=== PATIENT | male | born 1965 | race Caucasian/White ===

== ENCOUNTER 2020-07-19 09:00 | Outpatient (CLI) | payer BC, SELFPAY ==
[2020-07-19 09:21] LABS: Basophils Percent Auto 0.2 % (0.2-1.2); Eosinophils Absolute Auto 0.1 K/mm3 (0-0.3); Eosinophils Percent Auto 1.1 % (0-4.4); Hematocrit 41.7 % (42.0-52.0); Hemoglobin 14.2 g/dL (14.0-18.0); Immature Granulocyte Absolute 0.01 K/mm3 (0.00-0.031); Immature Granulocyte Percent A 0.2 % (0-0.5); Lymphocytes Absolute Auto 1.06 K/mm3 (0.9-3.2); Lymphocytes Percent Auto 19.2 % (18.3-44.2); Mean Corpuscular HGB Conc 34.1 g/dl (32-36); Mean Corpuscular Hemoglobin 30.9 pg (26-34); Mean Corpuscular Volume 90.8 fl (80-100); Mean Platelet Volume 10.7 fl (7.4-10.4); Monocytes Absolute Auto 0.5 K/mm3 (0.1-0.6); Monocytes Percent Auto 9.4 % (2.6-8.5); Neutrophils Absolute Auto 3.9 K/mm3 (1.3-6.7); Neutrophils Percent Auto 69.9 % (45.5-73.1); Platelet Count Result 176 k/mm3 (150-375); Red Blood Count 4.59 M/mm3 (4.6-6.20); Red Cell Distribution Width 13.2 % (11.5-14.5); White Blood Count 5.5 K/mm3 (4.5-10.0)
[2020-07-19 09:28] LABS: Alanine Aminotransferase 32 U/L (4-50); Albumin Level 4.5 g/dL (3.5-5.1); Alkaline Phosphatase 45 U/L (38-126); Anion Gap 7 mmol/L (8-16); Aspartate Amino Transferase 30 U/L (17-59); Bilirubin,Total 1.1 mg/dL (0.2-1.3); Blood Urea Nitrogen 19 mg/dL (9-20); Calcium 9.4 mg/dL (8.4-10.2); Carbon Dioxide 29 mmol/L (22-30); Chloride 102 mmol/L (98-107); Cholesterol 304 mg/dL (0-200); Estimated Glomerular Filt Rate > 60; Glucose 103 mg/dL (75-110); HDL Direct 60 mg/dL; Potassium 4.3 mmol/L (3.4-5.0); Sodium 138 mmol/L (137-145); Triglycerides 221 mg/dL (<150)
[2020-07-19 09:39] LABS: LDL Cholesterol Direct 185 mg/dL
[2020-07-19 09:59] LABS: Prostate Specific Antigen 0.4 ng/mL (< OR = 4.0)
[2020-07-19 10:10] LABS: Vitamin D 25 Hydroxy 40.5 ng/mL
[2020-07-24 14:30] LABS: Testosterone Total 236 ng/dL (250-1100)
== END 2020-07-19 09:01 | disposition home or self-care (01) ==
PROVIDERS: PCP Family Medicine; Visit Provider Nurse Practitioner Family
DX: E78.5 Hyperlipidemia, unspecified (principal); R53.83 Other fatigue; Z12.5 Encounter for screening for malignant neoplasm of prostate; Z13.29 Encounter for screening for other suspected endocrine disorder
CPT/HCPCS: 36415; 80053; 80061; 82306; 82607; 84153; 84403; 84443; 85025; G0103

== ENCOUNTER 2023-01-27 01:32 | Day surgery (SDC) | payer BC, SELFPAY ==
[2023-01-14 11:01] VITALS: BMI 25.4
--- NOTE | 2023-01-26 13:46 | P.PNAN_ITS ---
Anes - Initial Pre Proc Eval Procedure: Operation Date: 01/27/23 13:45 Proposed Procedures p Colonoscopy - Sg Manzo MD Date/Time: 01/26/23 13:46 Surgeon: Sg Manzo MD Pre Op Diagnosis: melena Patient Data Age: 57 Gender: M Height: 1.8 m Weight: 82.7 kg Allergies Allergy/AdvReac Type Severity Reaction Status Date / Time No Known Allergies Allergy Verified 01/27/23 11:51 Home Medications Medication Instructions Recorded Confirmed Type rosuvastatin 20 mg tablet 20 mg PO DAILY #90 tabs 12/24/22 01/27/23 Rx dorzolamide 2 % eye drops 1 drp RIGHT EYE BID 01/14/23 01/14/23 History latanoprost 0.005 % eye drops 1 drp EACH EYE HS 01/14/23 01/27/23 History Patient hx anesthesia problems: none Family hx anesthesia problems: none Results Review: All pre-operative results and documents have been reviewed as part of the pre- operative evaluation. [facility] Past Medical History Medical History (Updated 01/26/23 @ 13:47 by Jaiden Bal DO) BMI 24.0-24.9, adult BMI 25.0-25.9,adult Hyperlipidemia, unspecified Family History Family History Father Family history of elevated blood lipids Family history of coronary artery disease Hyperlipidemia Mother No problems noted. Sibling Skin cancer Social History Social History Smoking status: Never smoker Second hand tobacco smoke exposure: No Alcohol intake: current Drinks per week: 2 Substance use: never Substance use type: does not use Lack of Transportation: No Lack of Food: Never True Current Housing: I Have Housing Concerned About Future Housing: No Difficulty Paying Gas/Electric Bills: No Difficulty Paying for Meds: No Currently Unemployed: No Education: Master's Degree or Higher Difficulty w/ Childcare or Family Care: No Living arrangements: with friend(s) Occupation/Education: occupation Additional occupation/education comments: [employer] Gender identity (if verbalized by the patient): Male Spiritual care concerns: No Anes - Eval Final PreProcedure Day of Procedure 01/26/23 13:46 Patient weight: overweight Heart: regular rate and rhythm Lungs: clear to auscultation Airway: Mallampati scale class II Neurological: alert and oriented Last oral intake: >/= 8 hours ASA classification: II Emergent: no Anesthetic plan: proceed Anesthesia type and monitoring: general GIVS and standard monitoring Results Review: All pre-operative results and documents have been reviewed as part of the pre- operative evaluation. Informed Consent: The patient's anesthetic plan and its attendant risks and benefits were discussed with the patient/family/POA. Questions were solicited and answers provided to the satisfaction of the patient/family/POA.
--- NOTE | 2023-01-26 16:02 | PM.HPGS ---
History of Present Illness History of Present Illness Consent: Risks, benefits, and alternatives have been discussed and questions answered. Patient agrees to proceed with procedure. Chief complaint: melena Narrative: Dwain Enriquez is a 57 year old male referred for colonoscopy because of blood in his stools. He had a colonoscopy 5 years ago that was unremarkable. His last hemoglobin, last year was normal. Review of Systems Review of Systems: All systems reviewed & are unremarkable except as noted in HPI and below PMFSH Past Medical History Medical History BMI 24.0-24.9, adult BMI 25.0-25.9,adult Hyperlipidemia, unspecified Family History Family History Father Family history of elevated blood lipids Family history of coronary artery disease Hyperlipidemia Mother No problems noted. Sibling Skin cancer Social History Social History Smoking status: Never smoker Second hand tobacco smoke exposure: No Alcohol intake: current Drinks per week: 2 Substance use: never Substance use type: does not use Lack of Transportation: No Lack of Food: Never True Current Housing: I Have Housing Concerned About Future Housing: No Difficulty Paying Gas/Electric Bills: No Difficulty Paying for Meds: No Currently Unemployed: No Education: Master's Degree or Higher Difficulty w/ Childcare or Family Care: No Living arrangements: with friend(s) Occupation/Education: occupation Additional occupation/education comments: [employer] Gender identity (if verbalized by the patient): Male Spiritual care concerns: No Meds Home Medications and Allergies Home Medications Medication Instructions Recorded Confirmed Type rosuvastatin 20 mg tablet 20 mg PO DAILY #90 tabs 12/24/22 01/14/23 Rx dorzolamide 2 % eye drops 1 drp RIGHT EYE BID 01/14/23 01/14/23 History latanoprost 0.005 % eye drops 1 drp EACH EYE HS 01/14/23 01/14/23 History Allergies Allergy/AdvReac Type Severity Reaction Status Date / Time No Known Allergies Allergy Verified 01/14/23 11:02 Exam Const: General: alert Orientation/consciousness: patient oriented x3 Resp: Auscultation: clear to auscultation bilaterally Cardio: Rhythm: regular rhythm GI: GI Palp: Yes Soft to palpation and No Tenderness to palpation present (GI) Neuro: General: patient oriented x3 Assessment and Plan Assessment and plan (1) Hematochezia: Code(s): K92.1 - Melena Status: Acute Assessment and Plan: Colonoscopy with possible biopsy or polypectomy or cautery or injection of substances.
[2023-01-27 11:52] VITALS: BP 120/87; PULSE 75; RESP 15; TEMP 36.6; O2SAT 99
[2023-01-27] MEDS: LACTATED RINGERS 1,000 ML 150 ML IV CONT (12:02)
[2023-01-27 12:43] VITALS: BP 110/78; PULSE 70; RESP 20; O2SAT 98
[2023-01-27 12:53] VITALS: BP 108/73; PULSE 73; RESP 20; O2SAT 99
[2023-01-27 13:03] VITALS: BP 121/86; PULSE 65; RESP 20; O2SAT 100
== END 2023-01-27 13:25 | disposition home or self-care (01) ==
PROVIDERS: PCP Family Medicine; Visit Provider Internal Medicine Gastroenterology
PROC: 0DJD8ZZ Inspection of Lower Intestinal Tract, Via Natural or Artificial Opening Endoscopic (ICD-10-PCS; CPT 45378; principal; 2023-01-27 13:15)
DX: K64.8 Other hemorrhoids (principal); K57.30 Diverticulosis of large intestine without perforation or abscess without bleeding; E78.5 Hyperlipidemia, unspecified
CPT/HCPCS: 45378; J2704; J7120